=== PATIENT | female | born 1990 | race Caucasian/White ===

== ENCOUNTER 2020-12-08 16:55 | Inpatient (IN) | payer MEDICAID ==
[2020-12-08] MEDS ORDERED: Oxytocin/Lactated Ringers 20 UNIT/1,000 ML BAG ONE (17:06)
[2020-12-08] MEDS ORDERED: Witch Hazel Medicated Pads 40/Jar TOP PRN (17:17)
[2020-12-08] MEDS ORDERED: Benzocaine/Menthol 20%-0.5% Spray 56 GM Canister TOP PRN (17:17)
[2020-12-08] MEDS ORDERED: Acetaminophen 325 MG Tab PO PRN (17:17)
[2020-12-08] MEDS ORDERED: Sodium Chloride 0.9% 10 ML Syringe FLUSH PRN (17:17)
[2020-12-08] MEDS ORDERED: Magnesium Hydroxide 400 MG/5 ML Susp 30 ML Cup PO PRN (17:17)
[2020-12-08] MEDS ORDERED: Hydrocortisone Acetate 25 MG Supp RECTAL PRN (17:17)
[2020-12-08] MEDS ORDERED: Docusate Sodium 100 MG Cap PO PRN (17:17)
[2020-12-08] MEDS ORDERED: Oxytocin/Lactated Ringers 20 UNIT/1,000 ML BAG IV SCH (17:30)
--- NOTE | 2020-12-08 17:49 | PCM.LDHP ---
L&D History of Present Illness - General Date of Service: 12/08/20 Admit Problem/Dx: Patient Status Order with Admit Dx/Problem 12/08/20 17:17 Patient Status [ADT] Routine Admission Diagnosis/Problem Admission Diagnosis/Problem Vaginal delivery Source of Information: Patient History Limitations: Reports: No Limitations - History of Present Illness Introduction:: Zoey Benson is a 30-year-old -0-0-5 status post precipitous vaginal delivery that occurred in the emergency department at [facility] in [place], [place]. The patient had been having contractions that started in the morning of 12/08 at around 1 AM with contractions that were about every hour until around 1 PM when they started to become very frequent. She contacted the ambulance service and they took her to the hospital in [place]. Patient had an MARINA of 12/25/2020 which puts her at 37 weeks 4 days. Delivery was performed by Dr. Toby Neil with assistance by Dr. Charanjit Denton who is the ED provider that was present. She had a normal spontaneous vaginal delivery of a live male on 12/08/2020 at 14:00. The weight was 5 pounds 11.9 ounces. The Apgars were 8 and 9. Patient was transferred from the emergency department to [facility] for care of the infant and mother. After delivery of the infant patient was given 10 units of Pitocin IM and had moderate amount of bleeding. On arrival to the hospital the nurses reported that she had a boggy uterus and with fundal massage were able to get a cantaloupe sized clots out of the uterus with weighing of the clot at 800 g. Patient reports that she had routine care in [place] and was moving to [place]. She had been staying in [place] with her mother. She states that she did not have any complications during the . She reports that she had her records with her at her mother's home but did not take them with her to the hospital. - Related Data Allergies/Adverse Reactions: Allergies Allergy/AdvReac Type Severity Reaction Status Date / Time No Known Allergies Allergy Verified 12/08/20 17:28 Past Medical History - Past Health History Medical/Surgical History: Denies Medical/Surgical History - Past Surgical History HEENT Surgical History: Reports: Oral Surgery (Withams teeth extraction) Social & Family History - Tobacco Use Tobacco Use Status *Q: Never Tobacco User Tobacco Use Within Last Twelve Months: No - Tobacco Core Measures Smokeless Tobacco Use in Last 30 Days: No - Alcohol Use Alcohol Use History: No - Recreational Drug Use Recreational Drug Use: No Drug Use in Last 12 Months: No H&P Review of Systems - Review of Systems: Review Of Systems: See Below General: Denies: Fever, Chills, Malaise, Weakness, Fatigue HEENT: Reports: Glasses, Sinus Congestion. Denies: Headaches, Rhinitis, Post Nasal Drip, Sore Throat Pulmonary: Denies: Shortness of Breath, Wheezing, Pleuritic Chest Pain, Cough Cardiovascular: Denies: Chest Pain, Palpitations, Dyspnea on Exertion, Orthopnea Gastrointestinal: Denies: Abdominal Pain, Constipation, Diarrhea, Nausea, Vomiting Genitourinary: Denies: Dysuria, Frequency, Burning, Pain, Urgency Musculoskeletal: Reports: Back Pain (Hip, pelvis and leg pain after delivery) Skin: Denies: Rash, Lesions Psychiatric: Denies: Depression, Anxiety L&D Exam - Exam Exam: See Below - Exam General: Alert, Oriented HEENT: Conjunctiva Clear, EOMI Neck: Supple, Trachea Midline Lungs: Clear to Auscultation, Normal Respiratory Effort Cardiovascular: Regular Rate, Regular Rhythm GI/Abdominal Exam: Soft, Non-Tender, No Distention, Other (Uterine fundus 1 fingerbreadth below the umbilicus and firm) Genitourinary: Other (No significant vaginal bleeding noted on exam with fundal massage) Extremities: Normal Inspection, No Pedal Edema Skin: Warm, Dry, Intact Psychiatric: Alert, Normal Affect, Normal Mood - Problem List (1) 37 weeks gestation of SNOMED Code(s): 55599633 ICD Code: Z3A.37 - 37 WEEKS GESTATION OF Status: Acute Current Visit: Yes (2) Vaginal delivery SNOMED Code(s): 824562447 ICD Code: O80 - ENCOUNTER FOR FULL-TERM UNCOMPLICATED DELIVERY Status: Acute Current Visit: Yes (3) First degree perineal laceration during delivery SNOMED Code(s): 502163080 ICD Code: O70.0 - FIRST DEGREE PERINEAL LACERATION DURING DELIVERY Status: Acute Current Visit: Yes (4) hemorrhage SNOMED Code(s): 11162651 ICD Code: O72.1 - OTHER IMMEDIATE HEMORRHAGE Status: Acute Current Visit: Yes Problem List Initiated/Reviewed/Updated: Yes Orders Last 24hrs: Active Orders 24 hr Category Date Time Status Patient Status [ADT] Routine ADT 12/08/20 17:17 Active Activity as Tolerated [RC] PER UNIT ROUTINE Care 12/08/20 17:17 Active May Shower [RC] ASDIRECTED Care 12/08/20 17:17 Active Notify Provider Vital Signs [RC] ASDIRECTED Care 12/08/20 17:18 Active Peripheral IV Care [RC] . DIRECTED Care 12/08/20 17:18 Active Vital Signs [RC] ASDIRECTED Care 12/08/20 17:17 Active Regular Diet [DIET] Diet 12/08/20 Dinner Active CBC WITH AUTO DIFF [HEME] AM Lab 12/09/20 05:11 Ordered CBC WITH AUTO DIFF [HEME] Routine Lab 12/08/20 17:38 Received CORONAVIRUS COVID-19 BREN [MOLEC] Stat Lab 12/08/20 16:55 Received Acetaminophen [TylenoL] Med 12/08/20 17:17 Active 650 mg PO Q6H PRN Benzocaine/Menthol [Dermoplast Pain Relief [place]] Med 12/08/20 17:17 Active See Dose Instructions TOP ASDIRECTED PRN Docusate Sodium [Colace] Med 12/08/20 17:17 Active 100 mg PO BID PRN Hydrocortisone Acetate [Anucort-HC] Med 12/08/20 17:17 Active 25 mg RECTAL BID PRN Ibuprofen [Motrin] Med 12/08/20 17:17 Active 600 mg PO Q6H PRN Magnesium Hydroxide [Milk of Magnesia] Med 12/08/20 17:17 Active 30 ml PO BEDTIME PRN Oxytocin/Lactated Ringers [Pitocin in LR 20 Units/1,000 Med 12/08/20 17:30 Active ML] 20 unit in 1,000 ml IV SEECOMMENT Vit with Ca/FA/Iron [ Plus Iron] Med 12/09/20 09:00 Active 1 each PO DAILY Sodium Chloride 0.9% [Saline Flush] Med 12/08/20 17:17 Active 10 ml FLUSH ASDIRECTED PRN witch Deedee [Tucks] Med 12/08/20 17:17 Active 1 pad TOP ASDIRECTED PRN Assess Lochia [WOMSER] Per Unit Routine Oth 12/08/20 17:17 Ordered Assess Uterine Involution [WOMSER] Per Unit Routine Oth 12/08/20 17:17 Ordered Breast Pump [WOMSER] Per Unit Routine Oth 12/08/20 17:17 Ordered Heat Therapy [OM.PC] PRN Oth 12/08/20 17:30 Ordered Heat Therapy [OM.PC] PRN Oth 12/09/20 17:30 Ordered Ice Therapy [OM.PC] Per Unit Routine Oth 12/08/20 17:18 Ordered Medication Administration Instruction [OM.PC] Routine Oth 12/08/20 17:17 Ordered Perineal Care [OM.PC] Per Unit Routine Oth 12/08/20 17:17 Ordered Peripheral IV Discontinue [OM.PC] Routine Oth 12/08/20 17:18 Ordered Peripheral IV Insertion Adult [OM.PC] Routine Ot 12/08/20 17:17 Ordered Sitz Bath [OM.PC] Per Unit Routine Oth 12/08/20 17:17 Ordered Resuscitation Status Routine Resus Stat 12/08/20 17:17 Ordered Medication Orders Acetaminophen (Acetaminophen 325 Mg Tab) 650 mg PO Q6H PRN PRN Reason: mild pain or fever Benzocaine/Menthol (Benzocaine/Menthol 20%-0.5% [place] 56 Gm Canister) 0 gm TOP ASDIRECTED PRN PRN Reason: Perineal Comfort Measure Docusate Sodium (Docusate Sodium 100 Mg Cap) 100 mg PO BID PRN PRN Reason: Constipation Hydrocortisone Acetate (Hydrocortisone Acetate 25 Mg Supp) 25 mg RECTAL BID PRN PRN Reason: Hemorrhoid pain Oxytocin/Lactated Ringer's (Pitocin In Lr 20 Units/1,000 Ml) 20 unit in 1,000 mls @ 500 mls/hr IV SEECOMMENT ALEXANDRE Ibuprofen (Ibuprofen 600 Mg Tab) 600 mg PO Q6H PRN PRN Reason: Mild pain or fever Magnesium Hydroxide (Magnesium Hydroxide 400 Mg/5 Ml Susp 30 Ml Cup) 30 ml PO BEDTIME PRN PRN Reason: Constipation Prenat Multivit/Brooks/Iron/Folic Ac ( Multivitamin With Calcium/Folic Acid/Iron Tab) 1 each PO DAILY ALEXANDRE Sodium Chloride (Sodium Chloride 0.9% 10 Ml Syringe) 10 ml FLUSH ASDIRECTED PRN PRN Reason: Keep Vein Open Witch Deedee (Witch Deedee Medicated Pads 40/Jar) 1 pad TOP ASDIRECTED PRN PRN Reason: Perineal Comfort Measure Assessment/Plan Comment:: Zoey Benson is a 30-year-old -0-0-5 status post precipitous vaginal delivery at [facility] in [place], [place] without significant complications noted * Admit to inpatient following precipitous spontaneous vaginal delivery that occurred in the emergency department in [place], [place] * Patient given Pitocin 10 units IM in the emergency department in [place] prior to transfer. On arrival to the unit patient was noted to have a boggy uterus and with fundal massage a clot that weighed approximately 800 g was expelled from the uterus. Patient was started on Pitocin 20 units IV for additional uterine tone. Plan to continue Pitocin per unit protocol and lactated Ringer's until tolerating regular diet * We will check a CBC now and repeat a CBC in the morning due to the suspected hemorrhage with approximately 1000 mL of blood loss * RPR collected on initial labs. We will review records and obtain hepatitis C test if this has not been previously collected * COVID-19 swab as part of the admission * Regular diet * Vitals per unit routine * Ibuprofen and Tylenol for pain control * Assist with breast-feeding as needed * Continue to monitor lochia * We will attempt to obtain records from her primary WEALTH MANAGEMENT ADVISOR provider for full evaluation of these records. * Anticipate discharge home on day #2 due to history of GBS positive status in previous and GBS unknown in this Dylan Larry MD 6:03 PM 12/08/2020
[2020-12-08] MEDS: Ibuprofen 600 MG Tab PO PRN (18:36)
--- NOTE | 2020-12-09 05:56 | PCM.SN.2 ---
- Free Text/Narrative Note: Delivery note: Stage I/II: On 12/08/2020 at approximately 1345 hrs. I was called to the emergency department at [facility] in [place], [place] to manage an incoming obstetric patient. 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 Just before that my nursing staff had received a phone call from the local ambulance service reporting that they were bringing a patient into the ED that was in labor, had spontaneously ruptured membranes with resultant clear amniotic fluid and that she was feeling pushy. Upon my arrival in the emergency department patient was writhing in contraction pain reporting that she felt she needed to push. Very shortly after her arrival in the emergency department the patient delivered a viable, decker, male infant in a right occiput posterior position. The baby delivered without problems and was placed on a warm blanket. Nose and mouth were bulb suctioned and the baby was dried. Umbilical cord was allowed to pulsate for approximately 2 minutes and then was clamped x2 and cut. Baby had Apgars of 8 and 9, a weight of 5 pounds 11.9 ounces and was vigorous upon delivery. Dr. Denton local primary care provider managed the baby's care after delivery along with nursing personnel from the local hospital. Baby was shortly after , placed skin to skin with mother as mother was planning on nursing and this was encouraged. Pitocin 10 units was given IM to facilitate increase in uterine tone and decrease likelihood of uterine bleeding. Evaluation of the perineum showed a very small first-degree laceration that was neither bleeding nor anatomically distorted therefore no suturing was required. Umbilical cord blood was obtained. I later determined that the patient was only temporarily in [place], [place] and was visiting someone she knew as she was in transit from [place] to [place] where she was moving to. Labor came on very quickly She reported she was a 5 now para 5-0-0-5 with 5 previous vaginal deliveries. She reported no problems with , no problems with previous pregnancies and was 37+ weeks with an MARINA of 12/25/2020. No records were available at the time of initial contact. Stage III: The placenta delivered in a Gomez presentation appeared intact and complete and was discarded per patient desire. The umbilical cord had 3 vessels. Estimated blood loss was less than 100 cc. Uterus was palpated and found to be just below the umbilicus, firm and nontender. Patient plans to breast-feed. Dr. Denton primary care provider at [facility] in [place], [place] recommended transfer of mom and baby to facility that does obstetrics therefore patient was to be transferred to [facility] for further care. That arrangement was managed by Dr. Denton and his staff.
--- NOTE | 2020-12-09 07:37 | PCM.PNPP ---
- General Info Date of Service: 12/09/20 Functional Status: Reports: Pain Controlled - Review of Systems General: Reports: No Symptoms HEENT: Reports: No Symptoms Pulmonary: Reports: No Symptoms Cardiovascular: Reports: No Symptoms Gastrointestinal: Reports: No Symptoms Genitourinary: Reports: No Symptoms Musculoskeletal: Reports: No Symptoms Skin: Reports: No Symptoms Neurological: Reports: No Symptoms Psychiatric: Reports: No Symptoms - General Info Date of Service: 12/09/20 - Patient Data Vital Signs - Most Recent: Last Vital Signs Temp 36.5 C 12/09/20 04:23 Pulse 85 12/09/20 04:23 Resp 16 12/09/20 04:23 BP 101/81 12/09/20 04:23 Pulse Ox 96 12/09/20 04:23 Weight - Most Recent: 104.326 kg I&O - Last 24 Hours: Intake & Output 12/08/20 12/09/20 12/09/20 22:59 06:59 14:59 Output Total 920 Balance -920 Lab Results - Last 24 Hours: Laboratory Results - last 24 hr 12/08/20 12/08/20 12/09/20 Range/Units 16:55 17:38 05:53 WBC 15.95 H 11.70 H (3.98-10.04) K/mm3 RBC 4.07 3.43 L (3.98-5.22) M/mm3 Hgb 12.6 10.8 L D (11.2-15.7) gm/dl Hct 37.5 31.8 L (34.1-44.9) % MCV 92.1 92.7 (79.4-94.8) fl MCH 31.0 31.5 (25.6-32.2) pg MCHC 33.6 34.0 (32.2-35.5) g/dl RDW Std Deviation 44.1 44.0 (36.4-46.3) fL Plt Count 166 L 147 L (182-369) K/mm3 MPV 11.7 11.8 (9.4-12.3) fl Neut % (Auto) 77.5 H 54.1 (34.0-71.1) % Lymph % (Auto) 15.5 L 37.4 (19.3-51.7) % [place] % (Auto) 6.5 7.1 (4.7-12.5) % Eos % (Auto) 0.1 L 0.9 (0.7-5.8) Baso % (Auto) 0.1 0.2 (0.1-1.2) % Neut # (Auto) 12.38 H 6.33 H (1.56-6.13) K/mm3 Lymph # (Auto) 2.48 4.38 H (1.18-3.74) K/mm3 [place] # (Auto) 1.03 H 0.83 H (0.24-0.36) K/mm3 Eos # (Auto) 0.01 L 0.11 (0.04-0.36) K/mm3 Baso # (Auto) 0.01 0.02 (0.01-0.08) K/mm3 SARS-CoV-2 RNA (BREN) Negative (NEGATIVE) Med Orders - Current: Current Medications Acetaminophen (Acetaminophen 325 Mg Tab) 650 mg PO Q6H PRN PRN Reason: mild pain or fever Last Admin: 12/08/20 21:56 Dose: 650 mg Documented by: Benzocaine/Menthol (Benzocaine/Menthol 20%-0.5% [place] 56 Gm Canister) 0 gm TOP ASDIRECTED PRN PRN Reason: Perineal Comfort Measure Last Admin: 12/08/20 18:37 Dose: 1 can Documented by: Docusate Sodium (Docusate Sodium 100 Mg Cap) 100 mg PO BID PRN PRN Reason: Constipation Hydrocortisone Acetate (Hydrocortisone Acetate 25 Mg Supp) 25 mg RECTAL BID PRN PRN Reason: Hemorrhoid pain Oxytocin/Lactated Ringer's (Pitocin In Lr 20 Units/1,000 Ml) 20 unit in 1,000 mls @ 500 mls/hr IV SEECOMMENT [facility] Last Admin: 12/08/20 17:05 Dose: 500 mls/hr Documented by: Ibuprofen (Ibuprofen 600 Mg Tab) 600 mg PO Q6H PRN PRN Reason: Mild pain or fever Last Admin: 12/08/20 18:36 Dose: 600 mg Documented by: Magnesium Hydroxide (Magnesium Hydroxide 400 Mg/5 Ml Susp 30 Ml Cup) 30 ml PO BEDTIME PRN PRN Reason: Constipation Prenat Multivit/Stem Processing Machine Operator/Iron/Folic Ac ( Multivitamin With Calcium/Folic Acid/Iron Tab) 1 each PO DAILY ALEXANDRE Sodium Chloride (Sodium Chloride 0.9% 10 Ml Syringe) 10 ml FLUSH ASDIRECTED PRN PRN Reason: Keep Vein Open Witch Deedee (Witch Deedee Medicated Pads 40/Jar) 1 pad TOP ASDIRECTED PRN PRN Reason: Perineal Comfort Measure Last Admin: 12/08/20 18:38 Dose: 1 pad Documented by: Discontinued Medications Oxytocin/Lactated Ringer's (Pitocin In Lr 20 Units/1,000 Ml) Confirm Administered Dose 20 unit in 1,000 mls @ as directed .ROUTE .STK-MED ONE Stop: 12/08/20 17:07 Last Admin: 12/08/20 20:21 Dose: Not Given Documented by: - Infant Interaction Support Person: - Recovery Exam Fundal Tone: Firm Fundal Level: At Umbilicus Fundal Placement: Midline Lochia Amount: Small Lochia Color: Rubra/Red Perineum Description: Intact, Minimal Bruising/Swelling Episiotomy/Laceration: None Bladder Status: Voiding - Exam General: Alert, Oriented HEENT: Pupils Equal Neck: Supple Lungs: Clear to Auscultation, Normal Respiratory Effort Cardiovascular: Regular Rate, Regular Rhythm GI/Abdominal Exam: Normal Bowel Sounds, Soft, Non-Tender, No Organomegaly, No Distention, No Abnormal Bruit, No Mass, Pelvis Stable Extremities: Normal Inspection, Normal Range of Motion, Non-Tender, No Pedal Edema, Normal Capillary Refill Neurological: No New Focal Deficit Psy/Mental Status: Alert, Normal Affect, Normal Mood - Problem List Review Problem List Initiated/Reviewed/Updated: Yes - Assessment Assessment:: PPD1 s/p in [place]. Uncomplicated course although baby GBS negative and 37 weeks. Will plan discharge tomorrow pending baby condition. - Plan Plan:: Zoey Benson is a 30-year-old -0-0-5 status post precipitous vaginal delivery at [facility] in [place], [place] without significant complications noted * Admit to inpatient following precipitous spontaneous vaginal delivery that occurred in the emergency department in [place], [place] * Patient given Pitocin 10 units IM in the emergency department in [place] prior to transfer. On arrival to the unit patient was noted to have a boggy uterus and with fundal massage a clot that weighed approximately 800 g was expelled from the uterus. Patient was started on Pitocin 20 units IV for additional uterine tone. Plan to continue Pitocin per unit protocol and lactated Ringer's until tolerating regular diet * We will check a CBC now and repeat a CBC in the morning due to the suspected hemorrhage with approximately 1000 mL of blood loss * RPR collected on initial labs. We will review records and obtain hepatitis C test if this has not been previously collected * COVID-19 swab as part of the admission * Regular diet * Vitals per unit routine * Ibuprofen and Tylenol for pain control * Assist with breast-feeding as needed * Continue to monitor lochia * We will attempt to obtain records from her primary TRANSITIONAL CARE MANAGER provider for full evaluation of these records. * Anticipate discharge home on day #2 due to history of GBS positive status in previous and GBS unknown in this Dylan Larry MD 6:03 PM 12/08/2020
[2020-12-09] MEDS: Ibuprofen 600 MG Tab PO PRN (09:02)
[2020-12-09] MEDS: Prenatal Multivitamin with Calcium/Folic Acid/Iron Tab PO SCH (09:02)
[2020-12-10] MEDS: Prenatal Multivitamin with Calcium/Folic Acid/Iron Tab PO SCH (09:41)
--- NOTE | 2020-12-10 10:53 | PCM.DCSUM1 ---
Discharge Summary - Hospital Course Free Text/Narrative:: Stage I/II: On 12/08/2020 at approximately 1345 hrs. I was called to the emergency department at [facility] in [place], [place] to manage an incoming obstetric patient. I had been attending clinic at the same facility that day and was asked to attend as the sole financial specialist in the facility at that time. Just before that my nursing staff had received a phone call from the local ambulance service reporting that they were bringing a patient into the ED that was in labor, had spontaneously ruptured membranes with resultant clear amniotic fluid and that she was feeling pushy. Upon my arrival in the emergency department patient was writhing in contraction pain reporting that she felt she needed to push. Very shortly after her arrival in the emergency department the patient delivered a viable, decker, male infant in a right occiput posterior position. The baby delivered without problems and was placed on a warm blanket. Nose and mouth were bulb suctioned and the baby was dried. Umbilical cord was allowed to pulsate for approximately 2 minutes and then was clamped x2 and cut. Baby had Apgars of 8 and 9, a weight of 5 pounds 11.9 ounces and was vigorous upon delivery. Dr. Denton local primary care provider managed the baby's care after delivery along with nursing personnel from the local hospital. Baby was shortly after , placed skin to skin with mother as mother was planning on nursing and this was encouraged. Pitocin 10 units was given IM to facilitate increase in uterine tone and decrease likelihood of uterine bleeding. Evaluation of the perineum showed a very small first-degree laceration that was neither bleeding nor anatomically distorted therefore no suturing was required. Umbilical cord blood was obtained. I later determined that the patient was only temporarily in [place], [place] and was visiting someone she knew as she was in transit from [place] to [place] where she was moving to. Labor came on very quickly She reported she was a 5 now para 5-0-0-5 with 5 previous vaginal deliveries. She reported no problems with , no problems with previous pregnancies and was 37+ weeks with an MARINA of 12/25/2020. No records were available at the time of initial contact. Stage III: The placenta delivered in a Gomez presentation appeared intact and complete and was discarded per patient desire. The umbilical cord had 3 vessels. Estimated blood loss was less than 100 cc. Uterus was palpated and found to be just below the umbilicus, firm and nontender. Patient plans to breast-feed. Dr. Denton primary care provider at [facility] in [place], [place] recommended transfer of mom and baby to facility that does obstetrics therefore patient was to be transferred to [facility] for further care. That arrangement was managed by Dr. Denton and his staff. From patient is doing well. She stayed for 2 days because of unknown group B strep status and recommendation of the outreach professional. She is nursing without problems, ambulating well, has minimal lochia and is desiring discharge home. Condition: Good. - Discharge Data Discharge Date: 12/10/20 Discharge Disposition: Home, Self-Care 01 Condition: Good - Referral to Home Health Primary Care Physician: PCP Not In Area - Patient Instructions Diet: Regular Diet as Tolerated (Nursing diet with increased calories and calcium as recommended) Activity: As Tolerated ([place] or tampons until bleeding resolves) Driving: May Drive Today Showering/Bathing: May Shower (May take a bath) Notify Provider of: Fever, Increased Pain, Swelling and Redness - Discharge Plan Home Medications: Home Meds Acetaminophen [Tylenol] 650 mg PO Q6H PRN tablet 12/10/20 [Rx] Ibuprofen [Motrin] 600 mg PO Q6H PRN tablet 12/10/20 [Rx] Referrals: Toby Neil MD [Physician] - (The patient plans to return to [place] in the next few days for and / care for the baby at her hometown.) - Discharge Summary/Plan Comment DC Time >30 min.: No Discharge Summary/Plan Comment: Discharge instructions: 1. Discharge home 2. Diet, activity and follow-up discussed with patient. Recommend nursing diet with increased calories and calcium. 3. Precautions given concern increased pain, bleeding, temperature, signs/symptoms of DVT/PE. 4. Medications per home medication was printed, discussed with and given to the patient. 5. Return to clinic- in 2 weeks. Diagnosis: Term -delivered Condition: Good - Patient Data Vitals - Most Recent: Last Vital Signs Temp 36.7 C 12/10/20 08:27 Pulse 72 12/10/20 08:27 Resp 18 12/10/20 08:27 BP 114/72 12/10/20 08:27 Pulse Ox 97 06/11/21 08:27 Weight - Most Recent: 104.326 kg Lab Results - Last 24 hrs: Laboratory Results - last 24 hr 12/08/20 Range/Units 17:38 RPR Non-reactive (NONREACTIVE) Med Orders - Current: Current Medications Acetaminophen (Acetaminophen 325 Mg Tab) 650 mg PO Q6H PRN PRN Reason: mild pain or fever Last Admin: 12/08/20 21:56 Dose: 650 mg Documented by: Benzocaine/Menthol (Benzocaine/Menthol 20%-0.5% [place] 56 Gm Canister) 0 gm TOP ASDIRECTED PRN PRN Reason: Perineal Comfort Measure Last Admin: 12/08/20 18:37 Dose: 1 can Documented by: Docusate Sodium (Docusate Sodium 100 Mg Cap) 100 mg PO BID PRN PRN Reason: Constipation Hydrocortisone Acetate (Hydrocortisone Acetate 25 Mg Supp) 25 mg RECTAL BID PRN PRN Reason: Hemorrhoid pain Oxytocin/Lactated Ringer's (Pitocin In Lr 20 Units/1,000 Ml) 20 unit in 1,000 mls @ 500 mls/hr IV SEECOMMENT [facility] Last Admin: 12/08/20 17:05 Dose: 500 mls/hr Documented by: Ibuprofen (Ibuprofen 600 Mg Tab) 600 mg PO Q6H PRN PRN Reason: Mild pain or fever Last Admin: 12/09/20 09:02 Dose: 600 mg Documented by: Magnesium Hydroxide (Magnesium Hydroxide 400 Mg/5 Ml Susp 30 Ml Cup) 30 ml PO BEDTIME PRN PRN Reason: Constipation Prenat Multivit/Banner/Iron/Folic Ac ( Multivitamin With Calcium/Folic Acid/Iron Tab) 1 each PO DAILY [facility] Last Admin: 12/10/20 09:41 Dose: 1 each Documented by: Sodium Chloride (Sodium Chloride 0.9% 10 Ml Syringe) 10 ml FLUSH ASDIRECTED PRN PRN Reason: Keep Vein Open Witch Deedee (Witch Deedee Medicated Pads 40/Jar) 1 pad TOP ASDIRECTED PRN PRN Reason: Perineal Comfort Measure Last Admin: 12/08/20 18:38 Dose: 1 pad Documented by: Discontinued Medications Oxytocin/Lactated Ringer's (Pitocin In Lr 20 Units/1,000 Ml) Confirm Administered Dose 20 unit in 1,000 mls @ as directed .ROUTE .STK-MED ONE Stop: 12/08/20 17:07 Last Admin: 12/08/20 20:21 Dose: Not Given Documented by:
== END 2020-12-10 14:30 | disposition home or self-care (01) | DRG 806 ==
LOC: JD.OB 16:55
PROVIDERS: ADMIT Obstetrics & Gynecology; ATTEND Obstetrics & Gynecology
PROC: 10E0XZZ Delivery of Products of Conception, External Approach (ICD-10-PCS; principal; 2020-12-08)
DX: O62.3 Precipitate labor (principal); O72.1 Other immediate postpartum hemorrhage; Z37.0 Single live birth; Z20.822 Contact with and (suspected) exposure to COVID-19; O70.0 First degree perineal laceration during delivery; Z3A.37 37 weeks gestation of pregnancy
CPT/HCPCS: 36415; 85025; 86592; A9270-GY; J2590; U0002